=== PATIENT | male | born 2000 | race Caucasian/White ===

== ENCOUNTER 2019-07-18 10:50 | Emergency (ER) | payer OTHER ==
[2019-07-18] MEDS ORDERED: Famotidine 20 MG TAB ONE ×2 (10:52→13:10)
[2019-07-18] MEDS ORDERED: Albuterol Sulfate 2.5 mg/0.5 ml Neb ONE (12:59)
[2019-07-18] MEDS ORDERED: methylPREDNISolone Sod Succ/PF 125 MG/2 ML VIAL ONE (13:09)
[2019-07-18] MEDS ORDERED: Ondansetron ODT 4 MG TAB ONE (13:44)
== END 2019-07-18 14:30 | disposition home or self-care (01) ==
LOC: ERS 10:50
DX: T78.40XA Allergy, unspecified, initial encounter (principal); R55 Syncope and collapse; J45.909 Unspecified asthma, uncomplicated; I10 Essential (primary) hypertension
CPT/HCPCS: 94640; 96372; J2930; J7611; Q0162